=== PATIENT | male | born 1980 | race Caucasian/White ===

== ENCOUNTER 2020-01-18 14:38 | Emergency (ER) | payer SELFPAY ==
[2020-01-18 14:55] VITALS: BP 150/84; PULSE 85; RESP 18; TEMP 36.2; O2SAT 97; BMI 35.4
--- NOTE | 2020-01-18 15:17 | XR_ITS ---
WS: [id number] CHEST XRAY TECHNIQUE: Portable chest. CLINICAL INFORMATION: cough/congestion COMPARISON: None. FINDINGS: Heart: Normal cardiac silhouette. Lungs: Shallow inspiration. Mild interstitial thickening in the mid and lower lungs edema suspicious for pneumonitis. No focal pneumonia or consolidation. Bones: Normal visualized bony structures. XR/XR chest 1V portable [id number] IMPRESSION: . Shallow inspiration with mild diffuse interstitial thickening in the mid and lo wer lungs suspicious for pneumonitis. No focal consolidation.
--- NOTE | 2020-01-18 15:39 | ED_ITS ---
HPI - Fever General: Chief Complaint: Fever Stated Complaint: fever, cough, weakness Time Seen by Provider: 01/18/20 15:38 History of Present Illness: HPI Narrative: Pt states he has been sick with fever for 3-4 days. Last night it was up to 103.2, he states he has been coughing alot until he gags. He has a slight sore throat and he has had some nausea. Back pain as well. MD elicited complaint: fever and malaise Onset (ago): day(s) (3) Exacerbating factors: nothing Relieving factors: nothing Associated symptoms: Reports back/flank pain, chills, cough (dry), headache(s), myalgias and nausea; Deny abdominal pain, chest pain, diarrhea, dysuria, nasal congestion or vomiting Treatments prior to arrival fever: none Review of Systems General: Reports: 10 or more systems reviewed and unremarkable except in HPI and below Const: Reports: fever, chills, body aches, fatigue and malaise ENMT: Reports: throat pain; Denies: painful swallowing, dental pain or nasal congestion Card: Denies: chest pain, palpitations, irregular heart rhythm or edema Resp: Reports: non-productive cough; Denies: shortness of breath, productive cough or wheezing GI: Reports: nausea; Denies: abdominal pain, vomiting, diarrhea or constipation : Reports: flank pain; Denies: difficulty urinating, painful urination, urinary frequency or scrotal swelling Musc: Reports: back pain (diffuse) Skin/Breast: Denies: rash Neuro: Reports: headache; Denies: numbness in extremities, weakness in extremities, frequent falls or dizziness Psych: Denies: anxiety or depression All/Imm: Denies: throat swelling PFSH ED PFSH: Social History Smoking and tobacco status: never smoked Alcohol intake: current Physical Exam Const: COMMON NORMALS: no apparent distress EXAM LIMITATIONS: no altered mental status GENERAL APPEARANCE: cooperative, comfortable and well developed; not disheveled NUTRITIONAL APPEARANCE: not cachectic ORIENTATION/CONSCIOUS NESS: Yes awake, Yes oriented to person, Yes oriented to place and Yes oriented to time Neck/C-Spine: COMMON NORMALS: full ROM, no lymphadenopathy and no JVD Resp: COMMON NORMALS: normal respiratory effort EFFORT & INSPECTION: Yes able to speak in complete sentences and Yes symmetric chest movement AUSCULTATION: wheezes expiratory wheezes and throughout and diminished lung sounds Cardio: COMMON NORMALS: no JVD, regular rate, regular rhythm and no murmurs RATE: regular rate RHYTHM: regular rhythm GI: COMMON NORMALS: normal to inspection, nondistended, normoactive bowel sounds, soft to palpation and non-tender PALPATION: Yes soft RECTAL EXAM: Yes deferred : COMMON NORMALS: Yes no CVA tenderness BLADDER/KIDNEY EXAM: Yes no CVA tenderness Back/Pelvis: COMMON NORMALS: no CVA tenderness Extremity: COMMON NORMALS: normal to inspection Neuro: SENSORIUM/ORIENTATION: Yes oriented to person, Yes oriented to place and Yes oriented to time Psych: COMMON NORMALS: mental status grossly normal and thought process normal THOUGHT PROCESS: normal thought process Skin: COMMON NORMALS: no rashes or lesions noted GENERAL SKIN EXAM: no rashes or lesions noted Course Vital Signs: Vital signs: Vital Signs Temperature 97.2 F L 01/18/20 14:55 Pulse Rate 74 01/18/20 17:08 Respiratory Rate 18 01/18/20 17:08 Blood Pressure 144/77 01/18/20 17:08 Pulse Oximetry 99 01/18/20 17:08 MDM - Fever MDM Narrative: Medical decision making narrative: Pt has had fever and cough and on cxr has bilat pneumonitis, I will start him on levaquin and will have him quarantine for 14 days, we will send him home with info for getting his covid test. He will need to drink plenty of fluids and take tylenol . Lab Data: Labs: Lab Results 01/18/20 01/18/20 01/18/20 Range/Units 15:55 16:00 16:00 WBC 6.5 (4.0-10.0) 10^3/ uL RBC 5.15 (4.1-5.3) 10^6/u L Hgb 16.0 (11.7-16.6) g/dL Hct 48.7 (42.0-52.0) % MCV 94.6 H (80-94) fL MCH 31.1 (28.0-34.0) pg MCHC 32.9 (30.0-36.0) g/dL RDW 12.7 (12.1-15.1) % Plt Count 216 (130-400) 10^3/c mm MPV 11.2 H (7.4-10.4) fL Neut % (Auto) 57.7 % Lymph % (Auto) 22.9 % [place] % (Auto) 9.1 % Eos % (Auto) 7.9 % Baso % (Auto) 1.5 % Neut # (Auto) 3.7 (1.8-7.7) 10^3/u L Lymph # (Auto) 1.5 (0.8-4.8) 10^3/u L [place] # (Auto) 0.6 (0.2-0.9) 10^3/u L Eos # (Auto) 0.5 (0.0-0.8) 10^3/u L Baso # (Auto) 0.1 (0.0-0.1) 10^3/u L Nucleated RBC % (a uto) 0 % Nucleated RBCs # 0.0 /100WBC Sodium 138 (136-145) mmol/L Potassium 4.0 (3.5-5.1) mmol/L Chloride 105 (98-107) mmol/L Carbon Dioxide 22 (22-29) mmol/L Anion Gap 15.0 (5-19) BUN 13 (6-20) mg/dL Creatinine 0.8 (0.7-1.2) mg/dL GFR Calculation 107.1 (90-130) mL/min Glucose 113 (65-115) mg/dL Calculated Osmolal ity 283 L (285-295) mOsm/k g Calcium 9.5 (8.5-10.5) mg/dL Total Bilirubin 0.5 (0.15-1.2) mg/dL AST 50 H (0-40) U/L ALT 65 H (0-41) U/L Alkaline Phosphata se 92 (40-130) IU/L Total Protein 8.1 (6.6-8.7) g/dL Albumin 3.8 (3.5-5.2) g/dL Globulin 4.3 (1.3-4.6) g/dL Influenza Type A A g Negative (Negative) Influenza Type B A g Negative (Negative) Discharge Plan Discharge Patient Disposition: Home, Self-Care Clinical Impression: Pneumonia Qualifiers: Pneumonia type: due to unspecified organism Laterality: bilateral Lung location: lower lobe of lung Qualified Code(s): J18.9 - Pneumonia, unspecified organism Condition: Stable Prescriptions: New Levaquin 750 mg tablet 750 mg PO Q24H 7 Days Qty: 7 RF: 0 Discharge Orders: Discharge Order (Routine); Ordered 01/18/20 Ordered By: Kadi Echevarria Referrals: James Lambert MD [Physician] - 1-3 days Discharge Diet: Usual diet Discharge Activity: Increase activity as tolerated Patient Instructions: Pneumonia (ED), Pneumonia - Viral Activity Restrictions/Additional Instructions: You must quarantine yourself for 14 days as you may have Covid-19. You have been tested and you can access your results as instructed. Drink plenty of fluids, and take Tyl as needed for fever. F/U with Dr Lambert 1-2 days and return if worse, any problem, any change. Coding Level of Care Code ED Information Security Systems Instructor for Kamla Fwd Exam Comprehensive
[2020-01-18 16:06] LABS: Basophils # 0.1 10^3/uL (0.0-0.1); Basophils % 1.5 %; Eosinophils # 0.5 10^3/uL (0.0-0.8); Eosinophils % 7.9 %; Hematocrit 48.7 % (42.0-52.0); Lymphocytes # 1.5 10^3/uL (0.8-4.8); Lymphocytes % 22.9 %; Mean Corpuscular HGB Conc 32.9 g/dL (30.0-36.0); Mean Corpuscular Hemoglobin 31.1 pg (28.0-34.0); Mean Corpuscular Volume 94.6 fL (80-94); Mean Platelet Volume 11.2 fL (7.4-10.4); Monocytes # 0.6 10^3/uL (0.2-0.9); Monocytes % 9.1 %; Neutrophils # 3.7 10^3/uL (1.8-7.7); Neutrophils % 57.7 %; Nucleated Red Blood Cells % 0 %; Platelet Count 216 10^3/cmm (130-400); Red Blood Count 5.15 10^6/uL (4.1-5.3); Red Cell Distribution Width 12.7 % (12.1-15.1); White Blood Count 6.5 10^3/uL (4.0-10.0)
[2020-01-18 16:26] LABS: Alanine Aminotransferase 65 U/L (0-41); Albumin Level 3.8 g/dL (3.5-5.2); Alkaline Phosphatase 92 IU/L (40-130); Aspartate Amino Transferase 50 U/L (0-40); Blood Urea Nitrogen 13 mg/dL (6-20); Calcium 9.5 mg/dL (8.5-10.5); Carbon Dioxide 22 mmol/L (22-29); Chloride 105 mmol/L (98-107); Creatinine Clr Calc Pharmacy 149.2444; Globulin 4.3 g/dL (1.3-4.6); Glomerular Filtration Rate 107.1 mL/min (90-130); Glucose 113 mg/dL (65-115); Osmolality Calculated 283 mOsm/kg (285-295); Sodium 138 mmol/L (136-145); Total Bilirubin 0.5 mg/dL (0.15-1.2); Total Protein 8.1 g/dL (6.6-8.7)
[2020-01-18 16:38] VITALS: BP 133/73; PULSE 58; RESP 18; O2SAT 98
[2020-01-18 17:08] VITALS: BP 144/77; PULSE 74; RESP 18; O2SAT 99
[2020-01-18 17:17] LABS: Influenza A by IFA Negative (Negative); Influenza B by IFA Negative (Negative)
[2020-01-18] MEDS: levoFLOXacin 750 mg Tablet PO (17:36)
[2020-01-18 17:37] LABS: Add Urine Microscopic? NO
[2020-01-18 17:40] VITALS: TEMP 36.7
[2020-01-18 17:45] LABS: Bilirubin Urine Neg (NEGATIVE); Blood Urine Neg (Negative); Glucose Urine UA Norm (Normal); Ketones Urine Negative (Negative); Leukocyte Esterase Urine Negative (Negative); Nitrate Urine Negative (Negative); Protein Urine Neg (Negative); Specific Gravity, Urine 1.015 (1.005-1.030); Urine Appearance Clear (CLEAR); Urine Color Yellow (Yellow); Urobilinogen Urine 1 mg/dL (Negative); pH Urine 6 (5-7)
--- NOTE | 2020-01-21 09:21 | PC.NURSE ---
Pt called and notified of negative COVID-19 test.
[2020-01-21 13:05] LABS: Coronavirus Overall Results NOT DETECTED
== END 2020-01-18 17:40 | disposition home or self-care (01) ==
PROVIDERS: Physician Assistant; Emergency Provider Emergency Medicine
DX: J18.9 Pneumonia, unspecified organism (principal)
CPT/HCPCS: 12345; 36415; 71045; 80053; 81003; 85025; 87635; 87804; 99282; 99283

== ENCOUNTER → 2020-03-24 13:40 | Outpatient (BNVA) | payer SELFPAY | PROVIDERS: Visit Provider Nurse Practitioner Family | DX: K29.30 Chronic superficial gastritis without bleeding (principal); A08.4 Viral intestinal infection, unspecified; R11.0 Nausea | CPT/HCPCS: 87071; 87880 ==

== ENCOUNTER → 2020-08-31 11:56 | Outpatient (BNVA) | payer OTHER, SELFPAY | PROVIDERS: Visit Provider Nurse Practitioner Family | DX: Z20.828 Contact with and (suspected) exposure to other viral communicable diseases (principal); J20.9 Acute bronchitis, unspecified | CPT/HCPCS: 87635 ==

== ENCOUNTER 2022-06-01 19:48 | Emergency (ER) | payer SELFPAY ==
[2022-06-01 20:49] VITALS: BP 176/77; PULSE 81; RESP 18; TEMP 36.6; O2SAT 96; BMI 38.0
--- NOTE | 2022-06-01 22:13 | PC.NURSE ---
Patient c/o left neck pain that started a couple of weeks ago and radiates down his left arm. States he went to chiropractor twice and he is treating a pinched nerve, states sitting hovered and neck turned gives some relief but unable to lay down.
[2022-06-01 22:21] VITALS: BP 136/98; PULSE 76; RESP 16; O2SAT 96
--- NOTE | 2022-06-01 22:26 | XRR_ITS ---
PROCEDURE INFORMATION: Exam: XR Cervical Spine Exam date and time: 06/01/2022 10:40 PM Age: 41 years old Clinical indication: Condition or disease; Disc radiculopathy; Cervical region; Additional info: L cervical radiculopathy TECHNIQUE: Imaging protocol: Radiologic exam of the cervical spine. Views: 2 or 3 views. COMPARISON: CR XR chest 1V portable [id number] 01/18/2020 3:40 PM FINDINGS: Bones/joints: There is degenerative narrowing of the C4-C5 and C5-C6 disc spaces with prominent anterior osteophytes. No fracture is identified. Soft tissues: Prevertebral soft tissues are unremarkable. XR/XR cervical spine 3V* [id number] IMPRESSION: Degenerative changes in the lower cervical spine.
--- NOTE | 2022-06-01 23:20 | ED_ITS ---
HPI - Extremity Problem General: Chief complaint: Extremity Injury, Upper Stated complaint: neck pain Time Seen by Provider: 06/01/22 22:56 History of Present Illness: 41-year-old male complaining of neck and shoulder pain for the last couple of weeks. He notes that really began to hurt worse a few days ago. He is been to the chiropractor twice with minimal transient relief. He notes pain to the base of his neck and back of his shoulder along his shoulder blade that radiates into his first finger on the left side. No fevers. No chills. No history of IV drug use. No history of endocarditis or other occult infections. He is not weak or dropping things with the left hand. He notes his most comfortable position is with his head forward and slightly turned to the right. Lying back increases his pain and radicular pain significantly, and so does any axial load to his head. MD Complaint: extremity pain and other Onset (ago): day(s) Pain Consistency: constant Location: left, upper extremity and other Quality: burning and aching Radiation: distal Exacerbating factors: range of motion and walking Associated symptoms: Deny chest pain, fever(s), myalgias or short of breath Review of Systems Const: Denies: fever(s) Eyes: Denies: change in vision Card: Denies: chest pain Resp: Denies: dyspnea, productive cough or non-productive cough GI: Reports: vomiting (once from pain ); Denies: abdominal pain Musc: Reports: neck pain and extremity pain; Denies: back pain or extremity swelling Neuro: Denies: headache(s) [facility] ED PFSH: Social History Smoking and tobacco status: current every day smoker Alcohol intake: current Physical Exam Const: COMMON NORMALS: alert GENERAL APPEARANCE: cooperative; not frail appearing ORIENTATION/CONSCIOUSNESS: Yes oriented to person HENMT: COMMON NORMALS: normocephalic, atraumatic and Normal external nose present HEAD & SCALP: normocephalic and atraumatic FACE & SINUS: normal facial exam and face symmetric NOSE: Normal external nose present Eye: COMMON NORMALS: Equal, round and reactive pupils present and EOMs intact bilaterally PUPIL: Yes Equal, round and reactive pupils present Neck/C-Spine: CERVICAL SPINE: Yes cervical ROM abnormal, Yes pain with cervical ROM, Yes loss of normal cervical lordosis, Yes Cervical spine tenderness, No step off deformity, Yes Paracervical muscle tenderness, Yes Paracervical spasm and Yes Trapezius muscle tenderness Chest: COMMONS NORMALS: normal inspection of the chest CHEST: Yes Symmetrical chest wall rise Resp: COMMON NORMALS: normal respiratory effort, No use of accessory muscles and clear to auscultation bilaterally EFFORT & INSPECTION: Yes able to speak in complete sentences AUSCULTATION: clear to auscultation bilaterally Cardio: COMMON NORMALS: regular rate and regular rhythm RATE: regular rate RHYTHM: regular rhythm GI: COMMON NORMALS: Normal to inspection, nondistended, normoactive bowel sounds present Neuro: SHEMAR COMA SCALE: document [facility] findings [place] coma scale eye opening: Spontaneous She[place] coma scale verbal response: Orientated Shemar coma scale motor response: Obey commands [place] coma scale total score: 15 SENSORIUM/ORIENTATION: Yes alert and Yes oriented to person CRANIAL NERVES: Yes CN normal except as noted SPEECH: speech normal SENSORY EXAM: Yes extremities (intact) Course Vital Signs: Vital signs: Vital Signs Temperature 97.9 F 06/01/22 20:49 Pulse Rate 71 06/02/22 00:51 Respiratory Rate 18 06/02/22 00:51 Blood Pressure 136/98 06/01/22 22:21 Pulse Oximetry 95 06/02/22 00:51 Oxygen Delivery Me thod 06/01/22 22:21 MDM - Extremity (Nontraumatic) Medical Decision Making Patient with significant radicular cervical left pain to the left upper extremity. He has a positive Spurling sign. X-ray shows loss of disc height with arthritic change at the base of his neck at C6-C7. This could be responsible for his symptoms. He does not have any fever here, or signs of occult infection. He will be treated for cervical radiculopathy Lab Data Radiology Impressions Cervical Spine X-Ray 06/01/22 22:26 IMPRESSION: Degenerative changes in the lower cervical spine. Discharge Plan Discharge Patient Disposition: Home Clinical Impression: Left cervical radiculopathy Condition: Stable Prescriptions: New hydrocodone-acetaminophen 5-325 mg tablet 1 tab PO Q8H PRN (Reason: pain) Qty: 7 0RF Medrol (Ignacio) 4 mg tablets,dose pack See Rx Instructions .ROUTE .COMPLEX Qty: 21 0RF Rx Instructions: orally per package directions tizanidine 6 mg capsule 6 mg PO Q8H PRN (Reason: muscle spasticity) Qty: 10 0RF No Action azithromycin 250 mg tablet See Rx Instructions PO .COMPLEX Qty: 6 0RF Rx Instructions: take 500 mg today (day 1), then 250 mg for 4 days (days 2-5) PO albuterol sulfate [ProAir HFA] 90 mcg/actuation HFA aerosol inhaler 2 puff inhalation Q6H PRN (Reason: shortness of breath or wheezing) Qty: 8.5 0RF Discharge Orders: Discharge ED (Routine); Ordered 06/01/22 Ordered By: Ben Montes Patient Instructions: Cervical Radiculopathy (ED), Opioid Safety Activity Restrictions/Additional Instructions: Medications as directed. Return for fever greater than 100, worsening symptoms despite treatment, chest discomfort, shortness of breath, any other concerning symptoms. A case management order has been placed to find you a follow-up appointment next week. Coding Level of Care Code ED Elementary Substitute Teacher for Kamla Zuniga
[2022-06-02 00:43] VITALS: RESP 18
[2022-06-02] MEDS: HYDROmorphone 1 mg/mL INJ 1 mL 1.5 MG IM (00:43)
[2022-06-02] MEDS: ondansetron 4 MG Tablet PO (00:47)
[2022-06-02 00:51] VITALS: PULSE 71; RESP 18; O2SAT 95
--- NOTE | 2022-06-05 09:17 | DCPLANNER ---
manager of operations had message to speak with patient about getting a primary care physician. manager of operations called patient, unable to speak with patient and unable to leave a voicemail for patient.
== END 2022-06-02 00:55 | disposition home or self-care (01) ==
PROVIDERS: Emergency Provider Emergency Medicine
DX: M54.12 Radiculopathy, cervical region (principal); F17.210 Nicotine dependence, cigarettes, uncomplicated
CPT/HCPCS: 72040; 96372; 99284; J1170; Q0162